=== PATIENT | female | born 1955 | race African-American/Black ===

== ENCOUNTER 2019-09-15 09:20 | Emergency (ER) | payer OTHER, SELFPAY ==
--- NOTE | 2019-09-15 09:26 | PC.NURSE ---
taken to room 4 per sharon Gandara.
[2019-09-15 09:36] VITALS: BP 153/92; PULSE 77; RESP 18; TEMP 37; O2SAT 98
--- NOTE | 2019-09-15 09:45 | ECG_ITS ---
Measurements Intervals [place] Rate: 77 P: 39 DC: 160 QRS: -40 QRSD: 109 T: 6 QT: 421 QTc: 478 Interpretive Statements SINUS RHYTHM LEFT AXIS DEVIATION VOLTAGE CRITERIA FOR LVH POOR R WAVE PROGRESSION, CONSIDER ANTERIOR INFARCT LATERAL INFARCT, AGE INDETERMINATE BORDERLINE ST-T WAVE ABNORMALITY- INFERIOR LEADS BASELINE ARTIFACT- I, II, AVR ABNORMAL ECG Electronically Signed On 09-15-2019 10:28:40 CERTIFIED CODER by Js Grullon D.O.
--- NOTE | 2019-09-15 09:47 | ED.GENADULT ---
HPI - General Adult General Chief complaint: Unspecified Stated complaint: Elevated BS, palpitations Time Seen by Provider: 09/15/19 09:30 History of Present Illness HPI narrative: Pt is a 63 y/o female, with a H/o DM, who presents to the ED with c/o high BS. Pt states that she was seen in [facility] 2 days ago for a high BS. She notes that she was at [employer] and started having blurry vision and when she checked her BS it was 800. By the time she got to the it was 495. Pt stayed in the [facility] for 2 hours until her BS went down. Pt states she drank 5 bottles of cranberry juice in 4 days because she thought she had a UTI. She notes that she drank a lot of water and was feeling better. Pt tried to call her PCP's office today, Ivett Garay NP, but they kept putting her on hold so she decided to come to the ED to get evaluated. Pt states that she feels off. She reports vaginal itching after shaving with a new razor. Pt denies dysuria, vaginal discharge, vag itching- shaving with new razor- broke out iwth boil- cahnges deodorant- boil under KENNA arms no dysuria no vag discahrge small hypoallergenic soaps murmur grade 2 systolic heart murmur mild mI no stents no blood thinners no cough fever congestion KENNA in grown hair on labia no abcess no cellulits Related Data Home Medications Medication Instructions Recorded Confirmed hydrochlorothiazide 09/15/19 levothyroxine 09/15/19 lovastatin mg 09/15/19 metformin mg 09/15/19 metoprolol tartrate 09/15/19 Allergies Allergy/AdvReac Type Severity Reaction Status Date / Time atorvastatin Allergy Unknown angioedema Verified 07/07/19 14:27 ezetimibe Allergy Unknown Nausea Verified 07/07/19 14:27 MILK Allergy Unknown Unknown Uncoded 09/15/19 09:41 [facility] Family History Family History (System 07/07/19 @ 14:27 by Leann Johnson) Father Hypertension Cerebrovascular accident Family history of diabetes mellitus in first degree relative Mother Hypertension Cerebrovascular accident Family history of diabetes mellitus in first degree relative Social History Social History (System 07/07/19 @ 14:27 by Leann Johnson) Smoking status: Never smoker Second hand tobacco smoke exposure: No Alcohol intake: never Gender identity (if verbalized by the patient): Female Exam Narrative: Exam Narrative: GENERAL: Well-appearing, well-nourished, and in no acute distress. HEAD: Normocephalic, atraumatic. EYES: PERRLA and EOMI. ENT: Nares clear, no rhinorrhea or epistaxis. Mucous membranes moist. NECK: Supple. CHEST: Clear to auscultation. No respiratory distress. HEART: Regular rate and rhythm. No murmur heard. Normal peripheral pulses. ABDOMEN: Soft, nontender, nondistended, normal active bowel sounds. No suprapubic tenderness. : Ingrown hair to bilateral vagina, no abscess, no cellulitis , no erythema, no drainage, no candidal type discharge, non tender EXTREMITIES: Normal range of motion. No edema. SKIN: Warm, dry, no rash. NEURO: No focal deficits. Alert and oriented x3 Course Vital Signs Vital signs: Vital Signs Temperature 37.0 C 09/15/19 09:36 Pulse Rate 77 09/15/19 09:36 Respiratory Rate 18 09/15/19 09:36 Blood Pressure 153/92 H 09/15/19 09:36 Pulse Oximetry 98 09/15/19 09:36 Temperature 37.0 C 09/15/19 09:36 Pulse Rate 77 09/15/19 09:53 Respiratory Rate 18 09/15/19 09:53 Blood Pressure 153/92 H 09/15/19 09:36 Pulse Oximetry 98 09/15/19 09:53 Medical Decision Making MDM Narrative Medical decision making narrative: Pt presented for evaluation of feeling off and elevated blood glucose readings. She has been drinking increased amounts of cranberry juice due to concern for UTI. Patient does in fact have a urinary tract infection. She is not in DKA. No severe electrolyte abnormalities. No signs concerning for pyelonephritis as she has no flank pain, fever, vomiting. Will start patient on oral antibiotics. Adv
[2019-09-15 09:51] LABS: Glucose Point of Care 389 (65-105)
[2019-09-15 09:53] VITALS: PULSE 77; RESP 18; O2SAT 98
[2019-09-15 10:00] LABS: Basophils Percent Auto 0.6 % (0.2-1.2); Eosinophils Absolute Auto 0.2 K/mm3 (0-0.3); Eosinophils Percent Auto 2.2 % (0-4.4); Hematocrit 42.8 % (37.0-47.0); Hemoglobin 14.3 g/dL (12.0-15.0); Immature Granulocyte Absolute 0.01 K/mm3 (0.00-0.031); Immature Granulocyte Percent A 0.1 % (0-0.5); Lymphocytes Absolute Auto 1.91 K/mm3 (0.9-3.2); Lymphocytes Percent Auto 28.3 % (18.3-44.2); Mean Corpuscular HGB Conc 33.4 g/dl (32-36); Mean Corpuscular Hemoglobin 27.9 pg (26-34); Mean Corpuscular Volume 83.6 fl (80-100); Mean Platelet Volume 9.5 fl (7.4-10.4); Monocytes Absolute Auto 0.5 K/mm3 (0.1-0.6); Monocytes Percent Auto 7.5 % (2.6-8.5); Neutrophils Absolute Auto 4.1 K/mm3 (1.3-6.7); Neutrophils Percent Auto 61.3 % (45.5-73.1); Platelet Count Result 310 k/mm3 (150-375); Red Blood Count 5.12 M/mm3 (4.2-5.4); White Blood Count 6.8 K/mm3 (4.5-10.0)
[2019-09-15 10:08] LABS: Alveolar/Arterial O2 Gradient 18.5 mmHg; Base Excess ABG 2.5 mEq/l (+/-2.0); Carboxyhemoglobin 0.9 % THb (0-2.0); Fractional Inspired Oxygen 21 %; HCO3 ABG 25.1 mEq/l (22.0-26.0); Methemoglobin ABG 0.2 %THb (0-1.5); Oxygen Content ABG 19.5 %vol (16.0-22.0); Oxygen Saturation ABG 97.6 % (95.0-100.0); Oxyhemoglobin 95.8 % THb (90.0-100.0); PCO2 ABG 33.1 mmHg (35.0-45.0); PO2 ABG 91.6 mmHg (80.0-100.0); PO2 FiO2 Ratio Arterial Blood 4.36 %; Reduced Hemoglobin 3.1 %THb (0-5.0); Total Hemoglobin 14.4 g/dL (12.0-18.0); pH ABG 7.498 (7.350-7.450)
[2019-09-15 10:09] LABS: Device ROOM AIR; Modified Allen's Test Pass; Site Drawn LEFT RADIAL
[2019-09-15] MEDS: SODIUM CHLORIDE 0.9% IV 1,000 ML 999 ML IV CONT (10:11)
[2019-09-15 10:15] LABS: Alanine Aminotransferase 17 U/L (4-35); Albumin Level 4.5 g/dL (3.5-5.1); Alkaline Phosphatase 164 U/L (38-126); Aspartate Amino Transferase 31 U/L (14-36); Bilirubin,Total 1.9 mg/dL (0.2-1.3); Blood Urea Nitrogen 13 mg/dL (7-17); Calcium 10.1 mg/dL (8.4-10.2); Carbon Dioxide 27 mmol/L (22-30); Chloride 90 mmol/L (98-107); Estimated Glomerular Filt Rate 55; Glucose 397 mg/dL (65-105); Magnesium 1.6 mg/dL (1.6-2.3); Phosphorus 3.7 mg/dL (2.5-4.5); Potassium 3.2 mmol/L (3.4-5.0); Sodium 132 mmol/L (137-145)
[2019-09-15 10:18] LABS: Beta-Hydroxybutyrate/Acetoacetate 0.81 mmol/L (0.02-0.27)
[2019-09-15 10:30] LABS: Add Urine Microscopic? YES; Appearance Urine Cloudy (Clear); Bacteria Urine 3+ /hpf; Bilirubin Urine Negative (Negative); Blood Urine 1+ (Negative); Color Urine Yellow (Yellow); Glucose Urine UA 3+ mg/dL (Negative); Ketones Urine Trace mg/dL (Negative); Leukocyte Esterase Ur 3+ LEU/UL (Negative); Mucus Urine Rare /lpf; Nitrate Urine Negative (Negative); Protein Urine Negative (Negative); Specific Grav Ur 1.018 (1.001-1.035); Squamous Epithelial Cell Urine Many /hpf (Few); Urobilinogen Urine Negative mg/dL (<2.0); WBC Clumps Urine Present /HPF; WBC Urine >75 /hpf
[2019-09-15 11:25] VITALS: BP 128/82; PULSE 72; RESP 14; O2SAT 96
== END 2019-09-15 11:26 | disposition home or self-care (01) ==
PROVIDERS: Emergency Provider Emergency Medicine; PCP Nurse Practitioner Family
DX: N39.0 Urinary tract infection, site not specified (principal); E11.9 Type 2 diabetes mellitus without complications; Z79.84 Long term (current) use of oral hypoglycemic drugs
CPT/HCPCS: 36415; 36600; 80053; 81001; 82010; 82375; 82805; 82948; 83050; 83735; 84100; 85025; 87086; 87088; 93005; 96360; 99283; J7030

== ENCOUNTER 2020-09-16 08:08 | Outpatient (CLI) | payer MEDICARE, SELFPAY ==
--- NOTE | ~2020-09-16 | XR_ITS ---
XR foot RT 2V DATE: 09/16/2020 08:30 INDICATION: Right foot swelling. No injury. TECHNIQUE: AP and lateral views COMPARISON: None FINDINGS: Mild plantar calcaneal enthesopathy without erosive change or periostitis. There is moderate osteoarthritic change at the first metatarsophalangeal joint. Mild hallux valgus and bunion deformity. No fracture, dislocation, periosteal reaction or bone destruction. There is nonspecific soft tissue swelling of the dorsum of the foot. IMPRESSION: Nonspecific dorsal soft tissue swelling Osteoarthritis at first metatarsophalangeal joint Mild hallux valgus and bunion deformity Plantar calcaneal enthesopathy Reviewed, dictated and finalized at location A. NQUENT NOTICE MACHINE OPERATOR
--- NOTE | ~2020-09-16 | XR_ITS ---
XR foot LT 2V DATE: 09/16/2020 08:30 INDICATION: Foot swelling TECHNIQUE: AP and lateral views COMPARISON: None FINDINGS: There is mild to moderate osteoarthritic change at the first metatarsophalangeal joint. There is mild hallux valgus and bunion deformity. No fracture or dislocation, periosteal reaction or bone destruction. IMPRESSION: Mild to moderate osteoarthritis at first metatarsal phalangeal joint Mild hallux valgus and bunion deformity Reviewed, dictated and finalized at location A. R BLENDER IMPRESSION: Mild to moderate osteoarthritis at first metatarsal phalangeal join t Mild hallux valgus and bunion deformity
== END 2020-09-16 08:09 | disposition home or self-care (01) ==
PROVIDERS: PCP Nurse Practitioner Family; Visit Provider Nurse Practitioner Family
DX: M79.89 Other specified soft tissue disorders (principal); M19.071 Primary osteoarthritis, right ankle and foot; M19.072 Primary osteoarthritis, left ankle and foot; M77.31 Calcaneal spur, right foot
CPT/HCPCS: 73620

== ENCOUNTER 2020-09-22 07:00 | Outpatient (CLI) | payer MEDICARE, SELFPAY ==
--- NOTE | ~2020-09-22 | US_ITS ---
EXAMINATION: US venous doppler LE RT DATE: 09/22/2020 07:44 INDICATION: Right lower limb swelling. TECHNIQUE: Grayscale ultrasound images without and with compression and Doppler ultrasound images of the right lower extremity veins were obtained. COMPARISON: None. FINDINGS: The visualized portions of right common femoral vein, profunda (deep) femoral vein, femoral vein, pop liteal vein, peroneal veins, posterior tibial veins, and greater saphenous vein outflow are patent. IMPRESSION: 1. No deep venous thrombosis. Reviewed, dictated and finalized at location A. CE ASSOCIATE
== END 2020-09-22 07:01 | disposition home or self-care (01) ==
PROVIDERS: PCP Nurse Practitioner Family; Visit Provider Nurse Practitioner Family
DX: M79.89 Other specified soft tissue disorders (principal)
CPT/HCPCS: 93971

== ENCOUNTER 2023-04-10 15:29 | Outpatient (CLI) | payer MEDICARE, SELFPAY ==
--- NOTE | ~2023-04-10 | XR_ITS ---
XR hip RT 2V w AP pelvis DATE: 04/10/2023 15:59 INDICATION: Right hip pain for 6 weeks. No fall. TECHNIQUE: AP pelvis. AP and lateral views of right hip COMPARISON: None FINDINGS: There is patchy cystic change of the right acetabulum and right femoral head and virtual ob literation of right hip joint space consistent with severe osteoarthritis. No fracture or dislocation is evident. Avascular necrosis of the right femoral head is not excluded but no femoral head collaps e is noted. Left hip joint space appears relatively preserved. No pelvic fracture or bone destruction is detected. The pubic symphysis and sacral iliac joints are i ntact. Degenerative disc disease in the lower lumbar and lumbosacral area. IMPRESSION: Severe right hip osteoarthritis; right femoral head avascular necrosis is not excluded Reviewed, dictated and finalized at location B. IMPRESSION: Severe right hip osteoarthritis; right femoral head avascular necro sis is not excluded
== END 2023-04-10 15:30 | disposition home or self-care (01) ==
PROVIDERS: PCP Nurse Practitioner Family
DX: M16.11 Unilateral primary osteoarthritis, right hip (principal)
CPT/HCPCS: 73502